=== PATIENT | female | born 1965 | race Caucasian/White ===

== ENCOUNTER 2019-10-17 03:56 | Inpatient (IN) | payer BC ==
--- NOTE | 2019-10-17 04:10 | ED ---
Abdominal Pain/Female - HPI Summary HPI Summary: This pt is a 54 Y/O F presenting to [facility] with a CC of RLQ abdominal pain that started after she ate dinner at 2000 and is currently rated a 6/10 in severity. She states that she has been nauseas and SOB that is currently intermittent. She denies any vomiting or having diarrhea. She states that she has been constipated recently. She states that she has been unable to sleep due to the pain. She denies any fevers, chills, headaches, and back pain. She is currently transferred to [facility] for further investigations following a DDx of a SBO from [place]. She has a PMHx of diabetes and a FHx of HTN and diabetes. - History of Current Complaint Chief Complaint: EDAbdPain Stated Complaint: ABD PAIN PER EMS Time Seen by Provider: 10/17/19 04:25 Hx Obtained From: Patient Onset/Duration: Sudden Onset, Lasting Hours - 8, Still Present Timing: Constant Severity Initially: Moderate Severity Currently: Moderate Pain Intensity: 6 Pain Scale Used: 0-10 Numeric Location: Discrete At: RLQ Radiates: No Aggravating Factor(s): Food Alleviating Factor(s): Nothing Associated Signs and Symptoms: Positive: Negative - chills, headaches, back pain , Nausea, Other: - constipation, SOB. Negative: Fever, Vomiting, Diarrhea Allergies/Adverse Reactions: Allergies Allergy/AdvReac Type Severity Reaction Status Date / Time No Known Allergies Allergy Verified 07/29/18 08:21 Home Medications: Home Medications Cholecalciferol (Vitamin D3) [D 1000] 500 unit PO BID 10/17/19 [History Confirmed 10/17/19] Cyanocobalamin INJ * [Vitamin B12 INJ *] 1,000 mcg IM MONTHLY 10/17/19 [History Confirmed 10/17/19] Lansoprazole [Prevacid] 30 mg PO BID 10/17/19 [History Confirmed 10/17/19] Lidocaine [Ztlido] 1 patch TOPICAL Q12HR 10/17/19 [History Confirmed 10/17/19] Naratriptan HCl [Amerge] 2.5 mg PO DAILY PRN 10/17/19 [History Confirmed ] metFORMIN* [Glucophage 500 MG TAB *] 500 mg PO BID 10/17/19 [History Confirmed 10/17/19] PMH/Surg Hx/FS Hx/Imm Hx Previously Healthy: Yes Endocrine/Hematology History: Reports: Hx Diabetes Cardiovascular History: Denies: Hx Embolism Respiratory History: Denies: Hx Pleural Effusion Sensory History: Denies: Hx Contacts or Glasses Opthamlomology History: Denies: Hx Contacts or Glasses - Surgical History Surgical History: Yes - Immunization History Immunizations Up to Date: Yes Infectious Disease History: Denies: Traveled Outside the [place] in Last 30 Days - Family History Known Family History: Positive: Cardiac Disease, Hypertension, Diabetes - Social History Occupation: Employed Part-time Lives: With Family Alcohol Use: None Hx Substance Use: No Substance Use Type: Reports: None Hx Tobacco Use: No Smoking Status (MU): Never Smoked Tobacco Review of Systems Negative: Fever, Chills Negative: Chest Pain Positive: Shortness Of Breath Positive: Abdominal Pain - RLQ, Nausea. Negative: Vomiting, Diarrhea Genitourinary: Other - POSITIVE: constipation Negative: Headache All Other Systems Reviewed And Are Negative: Yes Physical Exam - Summary Physical Exam Summary: Appearance: Well-appearing, Well-nourished, lying in bed comfortably Skin: Warm, dry, no obvious rash Eyes: sclera anicteric, no conjunctival pallor ENT: mucous membranes moist, pharynx appears normal Neck: Supple, nontender Respiratory: Clear to auscultation, no signs of respiratory distress Cardiovascular: Normal S1, S2. No murmurs. Normal distal pulses in tibial and radial bilaterally. Abdomen: Soft, Upper abdominal tenderness without peritoneal signs, normal active bowel sounds present Musculoskeletal: Normal, Strength/ROM Intact Neurological: A&Ox3, awake and alert, mentation is normal, speech is fluent and appropriate Psychiatric: affect is normal, does not appear anxious or depressed Triage Information Reviewed: Yes Vital Signs On Initial Exam: Initial Vital Signs Temp 97.5 F 10/17/19 04:09 Pulse 70 10/17/19 04:09 Resp 16 10/17/19 04:09 BP 126/76 10/17/19 04:09 Pulse Ox 99 10/17/19 04:09 Vital Signs Reviewed: Yes Procedures - Sedation Patient Received Moderate/Deep Sedation with Procedure: No Abdominal Pain Fem Course/Dx - Course Course Of Treatment: his pt is a 54 Y/O F presenting to [facility] with a CC of RLQ abdominal pain that started after she ate dinner at 2000 and is currently rated a 6/10 in severity. She states that she has been nauseas and SOB that is currently intermittent. She denies any vomiting or having diarrhea. She states that she has been constipated recently. She states that she has been unable to sleep due to the pain. Her PE found that she currently has upper abdominal tenderness without perotineal signs. She will be admitted to [facility] by Dr. Todd, surgery, for futher evaluation and treatment. She was Dx with a SBO. She was given 2 doses of dilaudid, lactated ringers, and Zofran during her ED course. - Diagnoses Provider Diagnoses: SBO (small bowel obstruction) - Provider Notifications Discussed Care Of Patient With: William Todd Time Discussed With Above Provider: 04:30 Instructed by Provider To: Admit As Inpatient Admit/Transition Orders Completed By ED Provider: Yes Discharge ED - Sign-Out/Discharge Documenting (check all that apply): Patient Departure - admitted - Discharge Plan Condition: Stable Disposition: ADMITTED TO [facility] - Billing Disposition and Condition Condition: STABLE Disposition: Admitted to [facility] - Attestation Statements Document Initiated by Ericaibe: Yes Documenting Scribe: Dash Madrid Provider For Whom Hermilo is Documenting (Include Credential): Kenji Mello MD Scribe Attestation: Dash Gonzalez, scrbobbyed for Kenji Mello MD on 10/17/19 at 2123. Scribe Documentation Reviewed: Yes Provider Attestation: The documentation as recorded by the Dash honeycutt accurately reflects the service I personally performed and the decisions made by me, Kenji Mello MD Status of Scribe Document: Viewed
[2019-10-17] MEDS ORDERED: HYDROmorphone INJ* 0.5 MG/0.5 ML SYRINGE IV SLOW PU PRN (04:19)
[2019-10-17] MEDS ORDERED: HYDROmorphone INJ* 0.5 MG/0.5 ML SYRINGE IV ONE (04:21)
[2019-10-17] MEDS: Lactated Ringers 1000 ML Bag* 1,000 ML IV SCH ×2 (08:07→22:32)
[2019-10-17] MEDS: Ondansetron INJ* 2 MG/ML VIAL IV PRN (08:08)
[2019-10-17] MEDS: HYDROmorphone INJ1* 1 MG/ML SYRINGE IV SLOW PU PRN ×2 (10:34→12:37)
[2019-10-17] MEDS: Pantoprazole IV* 40 MG IV SCH (10:36)
--- NOTE | 2019-10-17 11:22 | HP ---
CC: [facility]; JOSÉ Miles; Dr. Se Singh ADMISSION HISTORY AND PHYSICAL: DATE OF ADMISSION: 10/17/19 PRIMARY CARE PHYSICIAN: JOSÉ Miles in [place]. CHIEF COMPLAINT: Abdominal pain with nausea. HISTORY OF PRESENT ILLNESS: Ms. Ly Villegas is a 54-year-old woman with a complicated surgical history that includes a laparoscopic gastric bypass with Dr. Franco in 2005. She presented with abdominal discomfort in 2010 and was felt to be in internal herniation with obstruction prompting exploratory laparoscopy and laparotomy with hernia reduction and repair. She subsequently had a complicated postoperative course which required a second operation with placement of a remnant gastric G-tube and drain placement and total parenteral nutrition. She had recovered from this well and over the past 5 to 6 years, her main complaint has been some chronic abdominal discomfort with nausea. She states she has had trouble maintaining her weight, sees Dr. Singh for chronic vitamin deficiencies. She is a diabetic. She has elevated blood sugars and these have been managed with several different regimens and she is to see Dr. El this Saturday. She states she developed some right upper quadrant abdominal pain which was different for her yesterday. This associated once again with dry heaves. The pain became somewhat progressively worsen. She presented to the emergency room at [facility]. She was noted to be afebrile there with stable vital signs and no evidence of tachycardia. She had a laboratory workup which was essentially unremarkable and I have reviewed. This included a normal white blood cell count. Electrolytes, BUN, and creatinine were unremarkable with a potassium of 3.5 and a BUN and creatinine of 16 and 0.8. Liver transaminases and bilirubin and amylase were also normal. The troponin was normal as well. Lactic acid was also normal. She underwent a CT scan of abdomen and pelvis. I did review these images. She appears to have some air and fluid within the gastric remnant as well as both biliopancreatic and the Jhonny limb from the gastrojejunostomy with concern for intussusception, most likely at the jejunostomy anastomosis. Distal small bowel appears to be collapsed. There was no evidence of free air, free fluid or other acute abnormalities. She has had an open cholecystectomy in the when she had a mildly dilated common bile duct. She was transferred to [facility] for further surgical care and was admitted to the surgical service. Also of note is that she has undergone [address] Ramirez in the past. Most likely 2018, she noted to have a marginal ulcer and has been on proton pump inhibitor since that time. No other abnormalities were found. She has not followed up with the Bariatric Surgical Services in at least 4 to 5 years. PAST MEDICAL HISTORY: 1. Chronic back and abdominal pain. 2. Diabetes. 3. Anxiety. MEDICINES: Include: 1. Amerge 2.5 mg daily. 2. Lidocaine patch. 3. Zofran. 4. Vitamin D. 5. Vitamin B12. 6. Metformin 500 mg b.i.d. 7. Prevacid 30 mg b.i.d. 8. Alprazolam 1 mg p.o. t.i.d. ALLERGIES: She has no known drug allergies. SOCIAL HISTORY: She is and lives in the [facility]. She presently is not working. She does not use tobacco. REVIEW OF SYSTEMS: Otherwise unremarkable and as per above. PHYSICAL EXAMINATION GENERAL: She is a well-developed, very slender female, appears to be in no apparent distress. VITAL SIGNS: Temperature 97.7, pulse 63, blood pressure 121/62, respirations 16. HEENT: Oral mucosa slightly dry. LUNGS: Clear to auscultation with normal respiratory effort. HEART: Regular rate and rhythm without murmurs, rubs, or gallops. ABDOMEN: Her abdomen is soft and nondistended. She has a well healed right subcostal incision. She has a well healed upper midline incision without hernia. She has diminished bowel sounds throughout. I appreciate no hernias. She has some mild tenderness in the mid and right abdomen without rebound, guarding or peritoneal irritation. EXTREMITIES: Show no cyanosis or edema. PSYCHIATRIC: She appears to be awake, alert and conversive and is oriented to person, place, and time. IMPRESSION: Abdominal discomfort in a patient with a complicated bariatric surgery including laparoscopic gastric bypass in 2005 with subsequent reoperation in 2010 for an internal hernia and revision. She has had problems with maintenance of weight and appetite as well as nausea and chronic abdominal pain over the past 5 to 6 years and has had evidence of at least 1 marginal ulceration at the gastrojejunostomy for which she takes proton pump inhibitors presently. She has not followed up with the bariatric service in several years. In addition, she had a CT scan done yesterday at [place] which I have reviewed. This does appear to show a probable intussusception at what appears to be most likely the jejunostomy anastomosis with proximal bowel distention with air and fluid in a dilated gastric remnant as well as the Jhonny limb. PLAN: 1. The patient had been admitted to the surgical service. 2. She will be kept n.p.o. and continued on IV fluids. 3. Proton pump inhibitors will be started. We will discuss with her bariatric surgeon here, Dr. Franco and discuss appropriate management. 4. All of the above were discussed with the patient here at the bedside. [id number] #: [id number] MTDD
[2019-10-17] MEDS ORDERED: Rocuronium* 10 MG/ML VIAL ONE (12:28)
[2019-10-17] MEDS ORDERED: Lidocaine 2% PF * 5 ML VIAL ONE (12:28)
[2019-10-17] MEDS ORDERED: Midazolam* 1 MG/ML 2 ML VIAL (2 MG) ONE ×2 (12:29→12:36)
[2019-10-17] MEDS ORDERED: fentaNYL* 50 MCG/ML 2 ML VIAL (100 MCG VIAL) ONE (12:29)
[2019-10-17] MEDS ORDERED: ROPIVACAINE 5 MG/ML 30 ML BTL (0.5%) ONE (12:35)
[2019-10-17] MEDS ORDERED: Dexmedetomidine* 200 MCG/2 ML 2 ML VIAL ONE (12:35)
[2019-10-17] MEDS ORDERED: ZOSYN 3.375 GM x ONE DOSE over 30 miuntes IVPB ×2 (13:00)
[2019-10-17] MEDS ORDERED: Phenylephrine 40 MCG/ML SYRINGE ONE (13:40)
[2019-10-17] MEDS ORDERED: Phenylephrine 10 MG/ML VIAL* 1 ML VIAL ONE (13:41)
[2019-10-17] MEDS ORDERED: Naloxone* 0.4 MG/ML 1 ML VIAL IV PRN (14:28)
[2019-10-17] MEDS ORDERED: DiMENhydriNATE IV* 50 MG/ML VIAL IV PUSH PRN (14:28)
[2019-10-17] MEDS ORDERED: oxyCODONE TAB* 5 MG TAB PO PRN (14:28)
[2019-10-17] MEDS ORDERED: Ondansetron INJ* 2 MG/ML VIAL ONE (14:29)
[2019-10-17] MEDS ORDERED: KETAMINE HCL* 50 MG/ML 10 ML VIAL ONE (14:29)
[2019-10-17] MEDS ORDERED: Metoclopramide IV* 5 MG/ML 2 ML VIAL ONE (14:29)
[2019-10-17] MEDS ORDERED: Dexamethasone IV* 4 MG/ML 1 ML (4 MG) ONE (14:29)
[2019-10-17] MEDS ORDERED: Ketorolac INJ* 30 MG/ML 1 ML VIAL ONE (14:29)
[2019-10-17] MEDS ORDERED: Acetaminophen IV 1GM/100ML * 100 ML ONE (16:34)
--- NOTE | 2019-10-17 16:58 | OP ---
Operative Report - Blank - Operative Report Date of Operation: 10/17/19 Note: OPERATIVE REPORT Pre-op: Small bowel intussuception at previous jejuno-jejunostomy with small bowel obstruction, abdominal pain Post-Op: Same Procedure:Ex lap with revision of jejuno-jejunostomy Surgeon: MD Peyton Asst: Fortunato Antunez MD Anes: general with local , Dr. Carlos IVF:1.5 l crystalloid EBL:50 cc Specimen: portion of small bowel Drain: #10 JOCELIN drain Wound: 2 To PACU
[2019-10-17] MEDS ORDERED: Naloxone* 0.4 MG/ML 1 ML VIAL IV PUSH PRN (17:00)
[2019-10-17] MEDS ORDERED: HYDROmorphone PCA* 20 MG/20 ML PCA.SYRING PCA SCH (17:00)
[2019-10-17] MEDS: HYDROmorphone INJ1* 1 MG/ML SYRINGE IV PRN ×5 (17:08→17:52)
--- NOTE | 2019-10-17 21:03 | OP ---
CC: JOSÉ Miles [facility]; Dr. Se Singh * DATE OF OPERATION: 10/17/19 - ROOM #337 DATE OF : 63 SURGEON: William Todd MD. CREAM HAULER: Ildefonso Antunez MD. ANESTHESIOLOGIST: Dr. Carlos. ANESTHESIA: General with local. PRE-OP DIAGNOSES: 1. Abdominal pain. 2. Small-bowel obstruction secondary to apparent intussusception at existing jejunojejunostomy. POST-OP DIAGNOSES: 1. Abdominal pain. 2. Small-bowel obstruction secondary to apparent intussusception at existing jejunojejunostomy. OPERATIVE PROCEDURE: Exploratory laparoscopy with revision of existing jejunojejunostomy. ESTIMATED BLOOD LOSS: 50 cc. IV FLUIDS: 1.5 L of crystalloids. SPECIMENS: Portion of proximal small-bowel. COMPLICATIONS: None. DRAINS: #10 JOCELIN drain. WOUND CLASSIFICATION: III. FINDINGS: There was a markedly dilated Jhonny limb ascending up to the gastrojejunostomy starting at the existing jejunojejunostomy. Likewise, the biliary biliopancreatic limb was dilated. Distal small-bowel was collapsed. There appeared no other acute findings were noted. All bowel was viable. INDICATION: Ms. Ly Villegas is a 54-year-old woman who underwent a gastric bypass many years ago and had several re-operations for internal hernias. She presented to the emergency room yesterday with a sudden onset of severe upper abdominal discomfort. A CT scan showed findings worrisome for an intussusception at the existing jejunostomy with proximal dilated small-bowel and a gastric remnant with large air-fluid level in it. After discussion with the patient and her , she has been taken to the operating room for exploratory laparotomy. The risks, benefits, and alternatives were discussed with the patient and outlined in the preoperatively written note. The risks of but not limited to bleeding, infection, intraabdominal abscess formation, anastomotic leak requiring re-operation, sepsis, injury to peritoneal and retroperitoneal structures, the risk of anesthesia, blood clots, discomfort, and prolonged recovery were explained. DESCRIPTION OF PROCEDURE: Written informed consent was obtained. The abdomen was marked with indelible ink and preoperative antibiotics were administered. The patient was taken to the operating room and placed in the supine position. Sequential compression devices and a warming blanket were applied. General anesthesia was administered. Leavitt catheter was inserted. The abdomen was prepped and draped in the usual sterile fashion. Time-out verification was completed. A vertical incision was made through the previous upper midline incision. The peritoneal cavity was entered. There were some flimsy omental adhesions to the anterior abdominal wall. The existing gastric remnant was taken down from the anterior abdominal wall, where a gastrostomy tube had been previously placed and removed. We were then able to identify the transverse colon. There was a marked amount of small-bowel distended up in the upper abdomen, and this was reduced, and adhesions were taken down with sharp dissection, which took approximately an hour and a half. At this point, we were able to identify the Jhonny limb extending up to the previously created gastrojejunostomy, which was markedly dilated and somewhat thick walled. At the gastrojejunostomy, we did not identify a typical appearance of what would be expected intussusception, but distal to this anastomosis, the small-bowel was normally collapsed and we followed this all the way down to the terminal ileum. There were no other abnormalities. Also, likewise, the biliopancreatic limb was dilated extending and this was followed up into the ligament of Treitz. Decision was then made to resect the existing jejunostomy as we felt that this was the source of the problem. Also noted was that the orientation was slightly different for the biliopancreatic limb that was more medial to the Jhonny limb, as was normally fashioned. The existing jejunojejunostomy was then stapled proximally and distally and removed. We appropriately marked the three remaining small-bowel ends including the biliopancreatic, the gastrojejunostomy, and the common distal small-bowel. An anastomosis was then performed in a [id number]-spax fashion between the existing Jhonny limb and the distal common bowel, with the common bowel running distally with the [id number] EndoGIA stapler and the common bowel rent was closed with a TA-90 stapler. The mesentery was closed with a running 3-0 Vicryl suture. An appropriate area on the small-bowel distal to this anastomosis was then identified and another jejunojejunostomy between the biliopancreatic limb and the common bowel limb was fashioned likewise in a [id number] fashion. The mesenteric rent was closed with interrupted 3-0 silk sutures. Manley's defect was also closed with interrupted 3-0 Vicryl suture. All the bowel was viable at the completion. It sat nicely in the left upper quadrant without evidence of twisting or volvulus. The abdomen was irrigated. A #10 JOCELIN drain was placed in the right upper quadrant. All sponge, needle and laparotomy pad counts were then reported as correct. The midline fascia was closed with interrupted #1 Vicryl suture. The skin was approximated with a stapling device. The drain was sutured with 3-0 Prolene suture and sterile dressings were applied. The patient tolerated the procedure well and was taken to the recovery room in stable condition. [id number] #: [id number] MTDD
[2019-10-17 21:26] LABS: Urine Appearance Clear; Urine Color Colorless
[2019-10-17 21:27] LABS: Urine Bacteria Absent (Absent); Urine Red Blood Cell 2+(6-10/hpf) (Absent); Urine White Blood Cell Absent (Absent)
[2019-10-17 21:28] LABS: Urine Bilirubin Negative (Negative); Urine Blood 1+ (Negative); Urine Glucose 1+(50 mg/dL) (Negative); Urine Ketones Negative (Negative); Urine Nitrite Negative (Negative); Urine Protein 1+(30 mg/dL) (Negative); Urine Urobilinogen Negative (Negative)
[2019-10-18 05:41] LABS: ABS Lymphocytes 0.6 10^3/ul (1.0-4.8); ABS Monocytes 1.4 10^3/ul (0-0.8); ABS Neutrophils 14.9 10^3/ul (1.5-7.7); Hematocrit 35 % (35-47); Hemoglobin 11.8 g/dL (12.0-16.0); Lymphocyte % 3.7 %; Mean Corpuscular HGB Conc 34 g/dL (31-36); Mean Corpuscular Hemoglobin 30 pg (27-31); Mean Corpuscular Volume 88 fL (80-97); Mean Platelet Volume 8.4 fL (7.4-10.4); Platelet Count 265 10^3/uL (150-450); Red Blood Count 3.97 10^6 /uL (3.70-4.87); Red Cell Distribution Width 14 % (10-15); White Blood Count 16.9 10^3/uL (3.5-10.8)
[2019-10-18 05:59] LABS: BUN/Creatinine Ratio 21.9 (8-20); Calcium 8.3 mg/dL (8.6-10.3); EGFR African American 116.6 (>60); EGFR Non-African American 96.3 (>60); Potassium 4.2 mmol/L (3.5-5.0)
[2019-10-18] MEDS: Lactated Ringers 1000 ML Bag* 1,000 ML IV SCH ×3 (06:24→21:53)
[2019-10-18] MEDS: Pantoprazole IV* 40 MG IV SCH (10:18)
[2019-10-18] MEDS ORDERED: Lorazepam PYXIS KEY PRN (10:41)
[2019-10-18] MEDS ORDERED: Dextrose 50% VIAL 50 ml IV PUSH PRN (11:20)
--- NOTE | 2019-10-18 11:23 | PN ---
Progress Note - Progress Note Date of Service: 10/18/19 SOAP: Subjective: Main complaint is incisional pain No N/V No SOB or CP Wants pires out Objective: Temp Pulse Resp BP Pulse Ox 98.6 F 106 17 127/68 98 10/18/19 11:07 10/18/19 11:07 10/18/19 11:07 10/18/19 11:07 10/18/19 11:07 Intake & Output 10/16/19 10/17/19 10/18/19 10/19/19 06:59 06:59 06:59 06:59 Intake Total 3260 Output Total 1770 350 Balance 1490 -350 Weight 120 lb 120 lb Intake: IV Fluids 3260 LR 3148 NS 100ML, Zosyn 3.375G 100 Oral 0 Output: JOCELIN #1 420 Urine 400 Pires 950 350 PEX: Comfortable-awake and alert Lungs clear, decreased breath sounds at bases Cor is RRR ABd is soft and non-distended. No bowel sounds. Dressing intact without drainage. JOCELIN with serous fluid in bulb. Ext without edema Laboratory Results - last 24 hr 10/17/19 10/17/19 10/18/19 18:27 21:00 00:08 WBC RBC Hgb Hct MCV MCH MCHC RDW Plt Count MPV Neut % (Auto) Lymph % (Auto) [place] % (Auto) Eos % (Auto) Baso % (Auto) Absolute Neuts (auto) Absolute Lymphs (auto) Absolute Monos (auto) Absolute Eos (auto) Absolute Basos (auto) Absolute Nucleated RBC Nucleated RBC % Sodium Potassium Chloride Carbon Dioxide Anion Gap BUN Creatinine Est GFR ( Amer) Est GFR (Non-Af Amer) BUN/Creatinine Ratio Glucose POC Glucose (mg/dL) 194 H 191 H Calcium Urine Color Colorless Urine Appearance Clear Urine pH 5 Ur Specific [place] 1.030 Urine Protein 1+(30 mg/dl) A Urine Ketones Negative Urine Blood 1+ A Urine Nitrate Negative Urine Bilirubin Negative Urine Urobilinogen Negative Ur Leukocyte Esterase Negative Urine WBC (Auto) Absent Urine RBC (Auto) 2+(6-10/hpf) A Urine Bacteria Absent Urine Glucose 1+(50 mg/dl) A Urine Ascorbic Acid Not Reportable 10/18/19 10/18/19 05:34 05:34 WBC 16.9 H RBC 3.97 Hgb 11.8 L Hct 35 MCV 88 MCH 30 MCHC 34 RDW 14 Plt Count 265 MPV 8.4 Neut % (Auto) 87.9 Lymph % (Auto) 3.7 [place] % (Auto) 8.3 Eos % (Auto) 0.0 Baso % (Auto) 0.1 Absolute Neuts (auto) 14.9 H Absolute Lymphs (auto) 0.6 L Absolute Monos (auto) 1.4 H Absolute Eos (auto) 0.0 Absolute Basos (auto) 0.0 Absolute Nucleated RBC 0.0 Nucleated RBC % 0.0 Sodium 137 Potassium 4.2 Chloride 103 Carbon Dioxide 29 Anion Gap 5 BUN 14 Creatinine 0.64 Est GFR ( Amer) 116.6 Est GFR (Non-Af Amer) 96.3 BUN/Creatinine Ratio 21.9 H Glucose 171 H POC Glucose (mg/dL) Calcium 8.3 L Urine Color Urine Appearance Urine pH Ur Specific [place] Urine Protein Urine Ketones Urine Blood Urine Nitrate Urine Bilirubin Urine Urobilinogen Ur Leukocyte Esterase Urine WBC (Auto) Urine RBC (Auto) Urine Bacteria Urine Glucose Urine Ascorbic Acid Assessment: POD# 1 s/p exlap revision of jejuno-jejunostomy, s/p remote gastric bypass Diabetes Tachycardia-most likely secondary to pain at present; good urine output, BP, H/ H stable and no signs of sepsis (WBC most likely immediate post-op change) Plan: WAGON WINDER-adjust analgesia Add ativan which she takes at home Hospitalist consult for DM management D/C pires Increase activity PPI
[2019-10-18] MEDS: HYDROmorphone PCA* 20 MG/20 ML PCA.SYRING PCA SCH ×2 (12:00→16:04)
[2019-10-18] MEDS ORDERED: Lorazepam PYXIS KEY ONE (12:35)
[2019-10-18] MEDS: Insulin LISPRO* 1 UNITS UNIT SUBCUT SCH ×2 (12:39→18:29)
[2019-10-18] MEDS: LORazepam INJ* 2 MG/ML 1 ML VIAL IV PUSH SCH ×2 (12:40→20:25)
--- NOTE | 2019-10-18 13:12 | CONS ---
CC: Dr. William Todd * CONSULTATION REPORT: DATE OF CONSULT: 10/18/19 CONSULTING PROVIDER: Dr. William Todd. MY ATTENDING WHILE IN THE HOSPITAL: Dr. Tooñ Chacon. REASON FOR CONSULT: Co-management of comorbid medical conditions. HISTORY OF PRESENT ILLNESS: Ms. Villegas is a 54-year-old female with past medical history significant for multiple abdominal surgeries related to complications from a gastric bypass in 2005 as well as chronic abdominal and back pain and diabetes mellitus, presumed to be type 2. The patient presented to the emergency department on 10/17/19 with abdominal pain, dry heaves that were worsening and was found to have intussusception at her gastrojejunostomy site. The patient also had been previously treated for a marginal ulcer at this site based on previous EGD findings. The patient was taken to the operating room for surgical repair with Dr. William Todd on 10/17/19 for a successful uncomplicated surgery. The patient was examined and complains mainly of abdominal pain. The patient has no appetite, but no nausea or vomiting. The patient is not passing any gas. The patient just had her Leavitt removed. The patient denies any chest pain, shortness of breath, fevers, chills. The patient has had no recent illnesses. The patient states that in 2005 before her gastric bypass, she weighed 290 pounds and that she has been losing weight consistently since then, but this has gotten worse due to an injection she was recently put on by her primary care provider. She said that was supposed to aid in weight loss, though the patient's BMI is currently 19. The patient sees Dr. Singh for what she said was iron deficiency. She does not appear to be iron deficient based on her most recent labs, but she states that he thought she should be on insulin and she has a followup appointment with Dr. Babak El of Endocrinology on 10/21/19. The patient is currently only on metformin, which she tolerates well. PAST MEDICAL HISTORY: Chronic back pain; chronic abdominal pain; multiple abdominal surgeries; diabetes mellitus, presumed to be type 2; anxiety; recent diagnosis of marginal ulcer; history of internal hernia, status post repair. MEDICATIONS AT HOME: 1. Alprazolam 1 mg p.o. t.i.d. 2. Zofran 4 mg p.o. q.6 hours as needed. 3. Naratriptan 2.5 mg p.o. daily as needed. 4. Vitamin D3 5000 units p.o. b.i.d. 5. Vitamin B12 injection 1000 mcg IM monthly. 6. Metformin 500 mg p.o. b.i.d. 7. Lansoprazole 30 mg p.o. b.i.d. 8. Lidocaine topical patch 1 application every 12 hours. ALLERGIES: No known drug allergies. FAMILY HISTORY: The patient's father is alive and has Parkinson's disease and macular degeneration. The patient's mother is alive and has some health issues , but the patient is not sure what these are. SOCIAL HISTORY: The patient does not smoke, drink or use illicit drugs. 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 She is and lives in [place]. Her surrogate decision maker would be her , Sanket Villegas. REVIEW OF SYSTEMS: A 10-point review of systems was reviewed and is negative except as above in the HPI. PHYSICAL EXAM: General: The patient is a 54-year-old female, who appears older than stated age, is in the ICU and sitting in the bed, in no acute distress. Vital Signs: At the time of evaluation, temperature 98.6, pulse rate 106, respiratory rate 17, oxygen saturation 98% on room air, blood pressure 127/68. HEENT: Head normocephalic, atraumatic. Sclerae anicteric. No conjunctival injection. Nasal mucosa moist. Oral mucosa moist. No pharyngeal erythema, discharge, or exudate. Neck: Supple, nontender. No lymphadenopathy. No carotid bruits auscultated. No JVD. Cardiac: Tachycardic. No clicks, murmurs, gallops, or rubs. Pulses are 2+ in the bilateral dorsalis pedis, posterior tibialis, and radial areas. No bilateral lower extremity edema. No bilateral calf tenderness. Respiratory: Clear to auscultation bilaterally. No wheezes, rales, or rhonchi. Good air exchange bilaterally: Abdomen: Soft. Tender to palpation throughout. Bowel sounds hypoactive. Genitourinary: No suprapubic or CVA tenderness. Skin: Abdominal incision. No other rash. Psychiatric: Flat affect. Good eye contact. Neuro: Cranial nerves II through XII intact. No focal deficits. Alert and oriented x3. LABORATORY DATA: White blood cell count 16.8, hemoglobin 11.8, platelet count 265. Sodium 137, potassium 4.2, chloride 103, carbon dioxide 29, anion gap 5, BUN 14, creatinine 0.64, glucose 171, calcium 8.3. ASSESSMENT AND PLAN: Impression: Ms. Villegas is a 54-year-old female with past medical history significant for gastric bypass with multiple complications, most recently admitted with intussusception at her gastrojejunostomy site, status post repair on 10/17/19, who is currently doing well postoperatively, but with hyperglycemia. We have been consulted for co-management of comorbid medical conditions. 1. Intussusception, postoperative state. Management per General Surgery. Pain control with TRIM SETTER. Fluids until she is able to tolerate fluids by mouth. Coverage, the patient received 1 dose of Zosyn. It is unlikely she needs further antibiotics. 2. Diabetes mellitus type 2. The patient is being treated as if she has diabetes mellitus type 2; however, given that she does have a BMI of 19, there is a possibility she has converted to more of a type 1 physiology at some point in her history. Endocrinology evaluation is appropriate and this will be hopefully completed next week pending her discharge from the hospital. The patient will be continued on q.6 hours fingerstick and Humalog while in the hospital for her slight hyperglycemia, goal is less than 180. The patient has generally good control with a hemoglobin A1c of 7.2, but this is increased from 5.6 in April of this year. 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 3. Anxiety. The patient continues to take scheduled Ativan to replace the patient's Xanax and avoid withdrawal. 4. Chronic back pain. Pain management with TRIM SETTER as above. 5. Marginal ulcer. Continue the patient's pantoprazole at this time. 6. FEN: The patient will be on ice chips and sips of clear and advance per Surgery. Fluids at 125 mL an hour at this time. 7. Disposition: Per General Surgery. Thank you very much for this consultation. We will continue to follow along with you. TIME SPENT: Approximately 45 minutes was spent on this consultation, 20 of which was spent [id number] with the patient obtaining history and physical and discussing the treatment plan. This plan was discussed with my attending, Dr. Toño Chacon, and he is in agreement. JOSÉ GUZMÁN [id number]/[facility] #: [id number] JOSE ANOTNIO
[2019-10-18] MEDS: Ondansetron INJ* 2 MG/ML VIAL IV PRN ×2 (16:42→20:39)
[2019-10-18] MEDS: Heparin VIAL(*) 5000 UNITS/ML VIAL (FIVE THOUSAND) SUBCUT SCH (20:28)
[2019-10-19] MEDS: Insulin LISPRO* 1 UNITS UNIT SUBCUT SCH ×5 (00:03→23:39)
[2019-10-19] MEDS: Lactated Ringers 1000 ML Bag* 1,000 ML IV SCH ×3 (05:34→12:18)
[2019-10-19 06:42] LABS: BUN/Creatinine Ratio 21.1 (8-20); Calcium 8.9 mg/dL (8.6-10.3); EGFR African American 133.2 (>60); EGFR Non-African American 110.1 (>60); Potassium 3.8 mmol/L (3.5-5.0)
[2019-10-19 06:54] LABS: ABS Basophils 0.1 10^3/ul (0-0.2); ABS Eosinophils 0.3 10^3/ul (0-0.6); ABS Lymphocytes 1.1 10^3/ul (1.0-4.8); ABS Monocytes 1.2 10^3/ul (0-0.8); ABS Neutrophils 14.4 10^3/ul (1.5-7.7); Eosinophil % 1.5 %; Hematocrit 34 % (35-47); Hemoglobin 11.3 g/dL (12.0-16.0); Lymphocyte % 6.4 %; Mean Corpuscular HGB Conc 33 g/dL (31-36); Mean Corpuscular Hemoglobin 30 pg (27-31); Mean Corpuscular Volume 89 fL (80-97); Mean Platelet Volume 9.3 fL (7.4-10.4); Platelet Count 261 10^3/uL (150-450); Red Blood Count 3.81 10^6 /uL (3.70-4.87); Red Cell Distribution Width 14 % (10-15); White Blood Count 17.1 10^3/uL (3.5-10.8)
[2019-10-19] MEDS: HYDROmorphone PCA* 20 MG/20 ML PCA.SYRING PCA SCH (07:56)
[2019-10-19] MEDS: Pantoprazole IV* 40 MG IV SCH (08:54)
[2019-10-19] MEDS: LORazepam INJ* 2 MG/ML 1 ML VIAL IV PUSH SCH ×2 (08:54→20:24)
[2019-10-19] MEDS: Heparin VIAL(*) 5000 UNITS/ML VIAL (FIVE THOUSAND) SUBCUT SCH ×2 (08:54→20:23)
--- NOTE | 2019-10-19 11:13 | PN ---
Progress Note - Progress Note Date of Service: 10/19/19 SOAP: Subjective: Doing well Pain better controlled No N/V and no flatus Objective: Temp Pulse Resp BP Pulse Ox 97.7 F 83 18 130/70 100 10/19/19 07:45 10/19/19 07:45 10/19/19 10:48 10/19/19 07:45 10/19/19 10:00 Intake & Output 10/17/19 10/18/19 10/19/19 10/20/19 06:59 06:59 06:59 06:59 Intake Total 3260 2043 Output Total 1770 2630 Balance 1490 -587 Weight 120 lb 120 lb Intake: IV Fluids 3260 1943 LR 3148 1943 NS 100ML, Zosyn 3.375G 100 Oral 0 100 Output: JOCELIN #1 420 180 Urine 400 2100 Leavitt 950 350 PEX: Comfortable Lungs are clear Cor is RRR Abd is soft and non-distended. Incisions are clean and dry, JOCELIN with serosanguinous fluid in bulb. Few bowel sounds present. Ext without edema Laboratory Results - last 24 hr 10/18/19 10/18/19 10/18/19 12:05 18:07 23:54 WBC RBC Hgb Hct MCV MCH MCHC RDW Plt Count MPV Neut % (Auto) Lymph % (Auto) [place] % (Auto) Eos % (Auto) Baso % (Auto) Absolute Neuts (auto) Absolute Lymphs (auto) Absolute Monos (auto) Absolute Eos (auto) Absolute Basos (auto) Absolute Nucleated RBC Nucleated RBC % Sodium Potassium Chloride Carbon Dioxide Anion Gap BUN Creatinine Est GFR ( Amer) Est GFR (Non-Af Amer) BUN/Creatinine Ratio Glucose POC Glucose (mg/dL) 183 H 78 164 H Calcium 10/19/19 10/19/19 10/19/19 05:40 06:08 06:08 WBC 17.1 H RBC 3.81 Hgb 11.3 L Hct 34 L MCV 89 MCH 30 MCHC 33 RDW 14 Plt Count 261 MPV 9.3 Neut % (Auto) 84.6 Lymph % (Auto) 6.4 [place] % (Auto) 7.1 Eos % (Auto) 1.5 Baso % (Auto) 0.4 Absolute Neuts (auto) 14.4 H Absolute Lymphs (auto) 1.1 Absolute Monos (auto) 1.2 H Absolute Eos (auto) 0.3 Absolute Basos (auto) 0.1 Absolute Nucleated RBC 0.0 Nucleated RBC % 0.0 Sodium 135 Potassium 3.8 Chloride 100 L Carbon Dioxide 29 Anion Gap 6 BUN 12 Creatinine 0.57 Est GFR ( Amer) 133.2 Est GFR (Non-Af Amer) 110.1 BUN/Creatinine Ratio 21.1 H Glucose 104 H POC Glucose (mg/dL) 123 H Calcium 8.9 Assessment: POD# 2 s/p revision of jejuno-jejunostomy for SBO Ileus DM Plan: Appreciate hospitalist consult-DM SERVICE ORDER CLERK Increase activity PPI
--- NOTE | 2019-10-19 18:32 | PN ---
Subjective Date of Service: 10/19/19 Interval History: Patient feeling better, Denies chest pain or shortness of breath. Denies fever or chills. Denies diarrhea. c/o nausea Blood sugars reviewed - stable and well controlled Family History: Unchanged from Admission Social History: Unchanged from Admission Past Medical History: Unchanged from Admission Objective Active Medications: Dextrose (Dextrose 50% Vial 50 Ml*) 25 ml IV PUSH .FOR FS < 60 - SS PRN PRN Reason: FS < 60 Heparin Sodium (Porcine) (Heparin Vial(*)) 5,000 units SUBCUT Q12HR [facility] Last Admin: 10/19/19 08:54 Dose: 5,000 units Hydromorphone HCl (Dilaudid Microbiology Teacher*) 20 mg in 20 mls @ 0 mls/hr [employer] DEVELOPER .change Q24H [facility]; Protocol Last Admin: 10/19/19 07:56 Dose: 1 mls/hr Lactated Ringer's (Lactated Ringers 1000 Ml Bag*) 1,000 mls @ 75 mls/hr IV PER RATE [facility] Last Admin: 10/19/19 12:18 Dose: 75 mls/hr Insulin Human Lispro (Humalog*) 0 units SUBCUT Q6HR [facility]; Protocol Last Admin: 10/19/19 17:22 Dose: Not Given Lorazepam (Ativan Inj*) 0.5 mg IV PUSH BID [facility] Last Admin: 10/19/19 08:54 Dose: 0.5 mg Miscellaneous (Ativan Pyxis Vega) 1 ea N/A .ATIVAN IV VEGA PRN PRN Reason: PYXIS VEGA Naloxone HCl (Narcan*) 0.08 mg IV PUSH .Q2MIN PRN PRN Reason: OVERSEDATION Ondansetron HCl (Zofran Inj*) 4 mg IV Q4H PRN PRN Reason: NAUSEA/VOMITING Last Admin: 10/18/19 20:39 Dose: 4 mg Pantoprazole Sodium (Protonix Iv*) 40 mg IV DAILY [facility] Last Admin: 10/19/19 08:54 Dose: 40 mg Vital Signs - 8 hr 10/19/19 10/19/19 10/19/19 10:48 11:20 12:00 Temperature 97.7 F Pulse Rate 82 Respiratory 18 17 17 Rate Blood Pressure 125/63 (mmHg) O2 Sat by Pulse 96 98 Oximetry 10/19/19 10/19/1919 15:03 15:40 17:10 Temperature 99.3 F Pulse Rate 81 Respiratory 17 16 Rate Blood Pressure 134/87 (mmHg) O2 Sat by Pulse 100 100 100 Oximetry 10/19/19 17:11 Temperature Pulse Rate Respiratory 16 Rate Blood Pressure (mmHg) O2 Sat by Pulse 100 Oximetry Oxygen Devices in Use Now: None Appearance: appears comfortable resting in bed , no acute distress. Eyes: No Scleral Icterus Ears/Nose/Mouth/Throat: Clear Oropharnyx, Mucous Membranes Moist Neck: NL Appearance and Movements; NL JVP, Trachea Midline Respiratory: Symmetrical Chest Expansion and Respiratory Effort, Clear to Auscultation Cardiovascular: NL Sounds; No Murmurs; No JVD, No Edema Abdominal: NL Sounds; No Tenderness; No Distention Extremities: No Edema, No Clubbing, Cyanosis Skin: No Rash or Ulcers Neurological: Alert and Oriented x 3 Nutrition: Taking PO's - Nutrition: Malnutrition Diagnosis/Plan Malnutrition Assessment by Registered Dietitian: Malnutrition Assessment Clinical Characteristics Chronic,Moderate Malnutrition Assessment: - "absolutely nothing to eat for three weeks", Criteria per spouse's report - wt loss equates to 25% decline over the past year - mild subcutaneous fat and muscle loss per visual assessment Malnutrition Assessment: - OR 10/17 for revision of jejuno-jejunostomy Interventions - ice chips only (per MD order) - suggest PPN base A (vs TPN for now, for better glycemic control) if need for parenteral nutrition anticipated for < 1 week - suggest TPN base A, if need for parenteral nutrition anticipated > 1 week Malnutrition Assessment: Goals 1. pt will tolerate post-op diet progression without adverse GI effects 2. adequate parenteral nutrition to stablize body wt, provide hydration, and prevent further loss of lean body mass and adipose tissue 3. glycemic control within inpatient parameters and without s/sx hypo- or hyperglycemia 4. achieve and maintain serum electrolytes levels WNL 5. achieve and maintain regulated bowel pattern without c/o constipation (or diarrhea) Result Diagrams: 10/19/19 06:08 10/19/19 06:08 Assess/Plan/Problems-Billing Assessment: Ms. Villegas is a 54 y.o female that presented to the ER with abd pain found to have SBO secondart to intussusception whounder went surgical revision of her jejunojeostomy - Patient Problems (1) Intussusception of jejunum Current Visit: Yes Status: Acute Code(s): K56.1 - INTUSSUSCEPTION SNOMED Code(s): 61291743 Comment: POD #2 - management per surgery diet per surgery (2) Diabetes Current Visit: Yes Status: Acute Code(s): E11.9 - TYPE 2 DIABETES MELLITUS WITHOUT COMPLICATIONS SNOMED Code(s): 49809339 Comment: - will continue fingersicks Q 6 hours - lispro sliding scale (3) DVT prophylaxis Current Visit: Yes Status: Acute Code(s): Z29.9 - ENCOUNTER FOR PROPHYLACTIC MEASURES, UNSPECIFIED SNOMED Code(s): 914725229 Comment: per surgery - heparin (4) Full code status Current Visit: Yes Status: Acute Code(s): Z78.9 - OTHER SPECIFIED HEALTH STATUS SNOMED Code(s): 186835012 Status and Disposition: disposition per surgery
[2019-10-20] MEDS: Lactated Ringers 1000 ML Bag* 1,000 ML IV SCH (03:51)
[2019-10-20] MEDS: HYDROmorphone PCA* 20 MG/20 ML PCA.SYRING PCA SCH (03:56)
[2019-10-20] MEDS: Insulin LISPRO* 1 UNITS UNIT SUBCUT SCH ×3 (05:33→18:47)
[2019-10-20] MEDS: LORazepam INJ* 2 MG/ML 1 ML VIAL IV PUSH SCH ×2 (08:55→21:52)
[2019-10-20] MEDS: Heparin VIAL(*) 5000 UNITS/ML VIAL (FIVE THOUSAND) SUBCUT SCH ×2 (08:55→21:53)
[2019-10-20] MEDS: Pantoprazole IV* 40 MG IV SCH (08:55)
--- NOTE | 2019-10-20 12:05 | PN ---
Progress Note - Progress Note Date of Service: 10/20/19 SOAP: Subjective: Comfortable in bed, NAD. C/O forgeting to use PROPERTY ADMINISTRATOR due to poor short term memory. + Flatus [] Objective: Vital Signs Temp 99.2 F 10/20/19 11:20 Pulse 76 10/20/19 11:20 Resp 14 10/20/19 11:20 BP 123/68 10/20/19 11:20 Pulse Ox 100 10/20/19 11:20 Intake & Output 10/19/19 10/20/19 10/20/19 18:59 06:59 18:59 Intake Total 738 980 Output Total 870 1370 220 Balance -132 -390 -220 Intake: IV Fluids 738 980 LR 738 980 Oral 0 Output: JOCELIN #1 20 20 20 Urine 850 1350 200 Other: # Bowel Movements 0 Laboratory Tests 10/18/19 10/19/19 05:34 06:08 WBC 16.9 H 17.1 H PEX: GEN: NAD Chest:CTA CVS:RRR ABD:soft, non tender, hypo BS's, incision C/D/I tammy in place JOCELIN with sero sang output EXT:calves soft non tender [] Assessment: POD# 3 s/p revision of jejuno-jejunostomy for SBO with post op ileus resolving now with + Flatus [] Plan: D/C PROPERTY ADMINISTRATOR, start PO Percocet. Begin clears. Encourage deep breathing. IS ambulate. AM Labs []
[2019-10-20] MEDS: oxyCODONE/Acetamin 5/325 MG* TAB PO PRN ×2 (13:51→20:22)
[2019-10-20] MEDS: HYDROmorphone INJ* 0.5 MG/0.5 ML SYRINGE IV SLOW PU PRN ×2 (18:59→23:47)
--- NOTE | 2019-10-20 19:51 | PN ---
Subjective Date of Service: 10/20/19 Interval History: c/o abd pain. states that she increased her walking today. Denies chest pain or shortness of breath. denies fever or chills. denies vomiting. passing flatus Family History: Unchanged from Admission Social History: Unchanged from Admission Past Medical History: Unchanged from Admission Objective Active Medications: Dextrose (Dextrose 50% Vial 50 Ml*) 25 ml IV PUSH .FOR FS < 60 - SS PRN PRN Reason: FS < 60 Heparin Sodium (Porcine) (Heparin Vial(*)) 5,000 units SUBCUT Q12HR [facility] Last Admin: 10/20/19 08:55 Dose: 5,000 units Hydromorphone HCl (Dilaudid Inj*) 0.5 mg IV SLOW PU Q4H PRN PRN Reason: PAIN - SEVERE Last Admin: 10/20/19 18:59 Dose: 0.5 mg Lactated Ringer's (Lactated Ringers 1000 Ml Bag*) 1,000 mls @ 75 mls/hr IV PER RATE [facility] Last Admin: 10/20/19 03:51 Dose: 75 mls/hr Insulin Human Lispro (Humalog*) 0 units SUBCUT Q6HR [facility]; Protocol Last Admin: 10/20/19 18:47 Dose: Not Given Lorazepam (Ativan Inj*) 0.5 mg IV PUSH BID [facility] Last Admin: 10/20/19 08:55 Dose: 0.5 mg Miscellaneous (Ativan Pyxis Vega) 1 ea N/A .ATIVAN IV VEGA PRN PRN Reason: PYXIS VEGA Naloxone HCl (Narcan*) 0.08 mg IV PUSH .Q2MIN PRN PRN Reason: OVERSEDATION Ondansetron HCl (Zofran Inj*) 4 mg IV Q4H PRN PRN Reason: NAUSEA/VOMITING Last Admin: 10/18/19 20:39 Dose: 4 mg Oxycodone/Acetaminophen (Percocet 5/325 Tab*) 1 tab PO Q4H PRN PRN Reason: PAIN - MODERATE Last Admin: 10/20/19 13:51 Dose: 1 tab Pantoprazole Sodium (Protonix Iv*) 40 mg IV DAILY [facility] Last Admin: 10/20/19 08:55 Dose: 40 mg Vital Signs - 8 hr 10/20/19 10/20/19 10/20/19 13:51 15:42 16:00 Temperature Pulse Rate Respiratory 18 18 Rate Blood Pressure (mmHg) O2 Sat by Pulse 100 Oximetry 10/20/19 10/20/19 17:02 18:59 Temperature 97.9 F Pulse Rate 73 Respiratory 16 18 Rate Blood Pressure 120/72 (mmHg) O2 Sat by Pulse 100 Oximetry Oxygen Devices in Use Now: None Appearance: alert oriented x 3 , no acute distress Eyes: No Scleral Icterus Ears/Nose/Mouth/Throat: NL Teeth, Lips, Gums, Mucous Membranes Moist Neck: NL Appearance and Movements; NL JVP, Trachea Midline Respiratory: Symmetrical Chest Expansion and Respiratory Effort, Clear to Auscultation Cardiovascular: NL Sounds; No Murmurs; No JVD, No Edema Abdominal: - - tenderness, bs active x 4, soft, JOCELIN drain with minimal serosangous drainage Extremities: No Clubbing, Cyanosis Skin: No Rash or Ulcers Neurological: Alert and Oriented x 3 Nutrition: Taking PO's - Nutrition: Malnutrition Diagnosis/Plan Malnutrition Assessment by Registered Dietitian: Malnutrition Assessment Clinical Characteristics Chronic,Moderate Malnutrition Assessment: - "absolutely nothing to eat for three weeks", Criteria per spouse's report - wt loss equates to 25% decline over the past year - mild subcutaneous fat and muscle loss per visual assessment Malnutrition Assessment: - OR 10/17 for revision of jejuno-jejunostomy Interventions - ice chips only (per MD order) - suggest PPN base A (vs TPN for now, for better glycemic control) if need for parenteral nutrition anticipated for < 1 week - suggest TPN base A, if need for parenteral nutrition anticipated > 1 week Malnutrition Assessment: Goals 1. pt will tolerate post-op diet progression without adverse GI effects 2. adequate parenteral nutrition to stablize body wt, provide hydration, and prevent further loss of lean body mass and adipose tissue 3. glycemic control within inpatient parameters and without s/sx hypo- or hyperglycemia 4. achieve and maintain serum electrolytes levels WNL 5. achieve and maintain regulated bowel pattern without c/o constipation (or diarrhea) Result Diagrams: 10/19/19 06:08 10/19/19 06:08 Assess/Plan/Problems-Billing Assessment: Ms. Villegas is a 54 y.o female that presented to the ER with abd pain found to have SBO secondart to intussusception whounder went surgical revision of her jejunojeostomy - Patient Problems (1) Intussusception of jejunum Current Visit: Yes Status: Acute Code(s): K56.1 - INTUSSUSCEPTION SNOMED Code(s): 41207331 Comment: POD #3 - management per surgery diet per surgery (2) Diabetes Current Visit: Yes Status: Acute Code(s): E11.9 - TYPE 2 DIABETES MELLITUS WITHOUT COMPLICATIONS SNOMED Code(s): 41367961 Comment: - will continue fingersicks Q 6 hours - lispro sliding scale (3) Anxiety Current Visit: Yes Status: Acute Code(s): F41.9 - ANXIETY DISORDER, UNSPECIFIED SNOMED Code(s): 67398204 Comment: continue medications as ordered (4) DVT prophylaxis Current Visit: Yes Status: Acute Code(s): Z29.9 - ENCOUNTER FOR PROPHYLACTIC MEASURES, UNSPECIFIED SNOMED Code(s): 021810405 Comment: per surgery - heparin (5) Full code status Current Visit: Yes Status: Acute Code(s): Z78.9 - OTHER SPECIFIED HEALTH STATUS SNOMED Code(s): 135590262 Status and Disposition: disposition per surgery
[2019-10-21] MEDS: oxyCODONE/Acetamin 5/325 MG* TAB PO PRN ×5 (00:27→20:01)
[2019-10-21] MEDS: Insulin LISPRO* 1 UNITS UNIT SUBCUT SCH ×4 (00:30→18:03)
[2019-10-21] MEDS: HYDROmorphone INJ* 0.5 MG/0.5 ML SYRINGE IV SLOW PU PRN ×5 (03:29→21:09)
[2019-10-21 06:01] LABS: ABS Eosinophils 0.2 10^3/ul (0-0.6); ABS Monocytes 0.4 10^3/ul (0-0.8); Eosinophil % 3.5 %; Hematocrit 28 % (35-47); Hemoglobin 9.3 g/dL (12.0-16.0); Lymphocyte % 17.9 %; Mean Corpuscular HGB Conc 34 g/dL (31-36); Mean Corpuscular Hemoglobin 30 pg (27-31); Mean Corpuscular Volume 89 fL (80-97); Mean Platelet Volume 7.9 fL (7.4-10.4); Platelet Count 225 10^3/uL (150-450); Red Blood Count 3.11 10^6 /uL (3.70-4.87); Red Cell Distribution Width 13 % (10-15); White Blood Count 5.7 10^3/uL (3.5-10.8)
[2019-10-21 06:38] LABS: BUN/Creatinine Ratio 9.5 (8-20); Calcium 8.1 mg/dL (8.6-10.3); EGFR African American 189.5 (>60); EGFR Non-African American 156.6 (>60)
--- NOTE | 2019-10-21 07:59 | PN ---
Progress Note - Progress Note Date of Service: 10/21/19 SOAP: Subjective: Pt seen and examined. Doing ok. pos abdo pain. some flatus, no BM, feels bloated. Objective: [] Temp Pulse Resp BP Pulse Ox 97.7 F 72 18 132/72 99 10/21/19 07:50 10/21/19 07:50 10/21/19 07:55 10/21/19 07:50 10/21/19 07:50 Intake & Output 10/20/19 10/21/19 10/21/19 22:59 06:59 14:59 Intake Total 1040 480 Output Total 1050 102 Balance -10 378 a and o x3, nad lungs cta abdo: soft/ ND/ incisional tenderness hypoactive BS JOCELIN serous ext wnl labs noted Assessment: POD 4 revision JJ, ANAYELI stable Plan: advance diet d/c ivf d/c JOCELIN K repletion d/c home planning
[2019-10-21] MEDS: Heparin VIAL(*) 5000 UNITS/ML VIAL (FIVE THOUSAND) SUBCUT SCH ×2 (09:37→21:08)
[2019-10-21] MEDS: KCL 20 MEQ/100 ML IVPREMIX* 20 MEQ/100 ML BAG IV SCH ×2 (09:37→12:14)
[2019-10-21] MEDS: Pantoprazole IV* 40 MG IV SCH (09:38)
[2019-10-21] MEDS: LORazepam INJ* 2 MG/ML 1 ML VIAL IV PUSH SCH ×2 (09:38→21:08)
[2019-10-22] MEDS: Insulin LISPRO* 1 UNITS UNIT SUBCUT SCH ×2 (00:24→06:12)
[2019-10-22] MEDS: HYDROmorphone INJ* 0.5 MG/0.5 ML SYRINGE IV SLOW PU PRN ×3 (01:30→11:22)
[2019-10-22] MEDS: oxyCODONE/Acetamin 5/325 MG* TAB PO PRN ×4 (04:12→19:31)
[2019-10-22] MEDS: LORazepam INJ* 2 MG/ML 1 ML VIAL IV PUSH SCH (08:03)
[2019-10-22] MEDS: Heparin VIAL(*) 5000 UNITS/ML VIAL (FIVE THOUSAND) SUBCUT SCH ×2 (09:00→21:23)
[2019-10-22] MEDS: Pantoprazole IV* 40 MG IV SCH (09:03)
[2019-10-22 09:19] LABS: ABS Eosinophils 0.2 10^3/ul (0-0.6); ABS Lymphocytes 0.9 10^3/ul (1.0-4.8); ABS Monocytes 0.5 10^3/ul (0-0.8); ABS Neutrophils 5.2 10^3/ul (1.5-7.7); Eosinophil % 2.9 %; Hematocrit 32 % (35-47); Hemoglobin 10.9 g/dL (12.0-16.0); Lymphocyte % 12.9 %; Mean Corpuscular HGB Conc 34 g/dL (31-36); Mean Corpuscular Hemoglobin 30 pg (27-31); Mean Corpuscular Volume 88 fL (80-97); Mean Platelet Volume 8.1 fL (7.4-10.4); Platelet Count 278 10^3/uL (150-450); Red Blood Count 3.62 10^6 /uL (3.70-4.87); Red Cell Distribution Width 14 % (10-15); White Blood Count 6.8 10^3/uL (3.5-10.8)
--- NOTE | 2019-10-22 11:14 | PN ---
Progress Note - Progress Note Date of Service: 10/22/19 SOAP: Subjective: Having some lower abdominal crampy pain-thinks it's gas and she feels like she needs to have a BM No N/V, tolerating po No SOB Objective: Temp Pulse Resp BP Pulse Ox 98.1 F 82 16 138/72 97 10/22/19 07:55 10/22/19 09:06 10/22/19 09:06 10/22/19 07:55 10/22/19 07:55 Intake & Output 10/20/19 10/21/19 10/22/19 10/23/19 06:59 06:59 06:59 06:59 Intake Total 1718 1760 1553 Output Total 2240 1882 2450 600 Balance -522 -122 -897 -600 Intake: IV Fluids 1718 1203 LR 1718 1203 IVPB 800 LR 800 Oral 0 960 350 Output: JOCELIN #1 40 32 Urine 2200 1850 2450 600 Other: # Bowel Movements 0 0 0 1 Estimated Stool Amount Large PEX: Comfortable-awake and alert Lungs are clear Cor is RRR Abd is soft and non-distended. Bowel sounds are present and hyperactive but not high pitched or tinkling. Incision CDI. Appropriate incisional tenderness without rebound or guarding. Laboratory Results - last 24 hr 10/21/19 10/21/19 10/22/19 12:18 18:00 00:00 WBC RBC Hgb Hct MCV MCH MCHC RDW Plt Count MPV Neut % (Auto) Lymph % (Auto) [place] % (Auto) Eos % (Auto) Baso % (Auto) Absolute Neuts (auto) Absolute Lymphs (auto) Absolute Monos (auto) Absolute Eos (auto) Absolute Basos (auto) Absolute Nucleated RBC Nucleated RBC % POC Glucose (mg/dL) 131 H 109 H 99 10/22/19 08:48 WBC 6.8 RBC 3.62 L Hgb 10.9 L Hct 32 L MCV 88 MCH 30 MCHC 34 RDW 14 Plt Count 278 MPV 8.1 Neut % (Auto) 76.1 Lymph % (Auto) 12.9 [place] % (Auto) 7.5 Eos % (Auto) 2.9 Baso % (Auto) 0.6 Absolute Neuts (auto) 5.2 Absolute Lymphs (auto) 0.9 L Absolute Monos (auto) 0.5 Absolute Eos (auto) 0.2 Absolute Basos (auto) 0.0 Absolute Nucleated RBC 0.0 Nucleated RBC % 0.0 POC Glucose (mg/dL) Assessment: POD# 5 s/p revision of jejuno-jenostomy Ileus resolving Tolerating po JOCELIN drain out Normal WBC DM Plan: Bariatric fulls po BS control-hospitalist consult appreciated-await recommendations for outpatient meds, presently on insulin sliding scale Suppository UT Increase activity She is ready for D/C but says her will be working the next 3-4 days and will not have anyone at home to care for her.
[2019-10-22] MEDS ORDERED: oxyCODONE/Acetamin 5/325 MG* TAB PO PRN ×2 (12:55→16:20)
--- NOTE | 2019-10-22 16:16 | PN ---
Hospitalist Progress Note Date of Service: 10/22/19 Blood glucose has been well controlled and patient has received minimal insulin (total of 2 units) while in the hospital. Will d/c insulin and change back over to metformin monotherapy. Patient can be discharged on home dose of metformin. Thank you for this consultation. Hospital Medicine will sign off, but please contact us if you have any further questions or concerns.
[2019-10-22] MEDS: metFORMIN* 500 MG TAB PO SCH (21:23)
[2019-10-22] MEDS: ALPRAZolam TAB* 0.5 MG PO PRN (21:56)
[2019-10-23] MEDS: LORazepam INJ* 2 MG/ML 1 ML VIAL IV PUSH SCH (00:06)
[2019-10-23] MEDS: oxyCODONE/Acetamin 5/325 MG* TAB PO PRN ×2 (03:00→08:55)
[2019-10-23 07:49] VITALS: BP 128/64
[2019-10-23] MEDS: metFORMIN* 500 MG TAB PO SCH (08:55)
[2019-10-23] MEDS: Heparin VIAL(*) 5000 UNITS/ML VIAL (FIVE THOUSAND) SUBCUT SCH (08:56)
[2019-10-23] MEDS: ALPRAZolam TAB* 0.5 MG PO PRN (09:01)
[2019-10-23] MEDS: Pantoprazole IV* 40 MG IV SCH (09:25)
--- NOTE | 2019-10-23 10:35 | PN ---
Progress Note - Progress Note Date of Service: 10/23/19 SOAP: Subjective: NAD, had BM yesterday, + Flatus today [] Objective: Vital Signs Temp 97.5 F 10/23/19 07:48 Pulse 61 10/23/19 07:48 Resp 18 10/23/19 09:01 BP 128/64 10/23/19 07:48 Pulse Ox 100 10/23/19 07:48 Intake & Output 10/22/19 10/23/19 10/23/19 18:59 06:59 18:59 Intake Total 600 600 Output Total 1700 800 300 Balance -1100 -200 -300 Intake: Oral 600 600 Output: Urine 1700 800 300 Other: Estimated Void Medium # Bowel Movements 1 Estimated Stool Amount Large # Voids 2 PEX: GEN:NAD Chest:CTA CVS:RRR ABD:soft, ND/NT, + BS's Incision C/D/I, tammy in place, EXT:calves soft non tender [] Assessment: POD 6 S/P revision of jejuno-jejunostomy with post op ileus. drain has been removed, + Flatus, + BM yesterday [] Plan: D/C home today. Ful liquid diet x 1 week, then pureed diet for 2 weeks. F/U with Dr Todd 10/27/19 @ 9AM. above D/W Dr Todd. reviewed meds and diet with patient []
--- NOTE | 2019-11-09 13:49 | DS ---
Discharge Summary Surgeon:Peyton SIMMONS Admit Date:10/17/19 Discharge Date:10/23/19 D/C diagnosis:S/P revision of Jejunojejunostomy anastomosis Reason For Admission:Abdominal pain Assessment of Condition at Discharge:Stable Date of D/C PEX: Chest:CTA CVS:RRR ABD:Soft ND/NT incisional tammy in place EXT:non tender Procedures Performed:Exploratory Laparotomy for SBO secondary to intussusception at the existing jejunojejunostomy anastomosis with revision of the anastomosis Hospital Course: Pt known to our service S/P lap gastric bypass 2005 Dr Franco , Ex Lap in 2010 due to internal hernia, complications required a follow up surgery with placement of a remnant gastric G Tube drain placement and TPN. Subsequently pt recovered but over last 5 - 6 years has had ongoing abdominal discomfort and nausea. Trouble with maintaining her weight, and has DM. Pt was transfered to [facility] from the ER at [facility] after presenting with dry heaves and abdominal pain on 10/17/19. CT scan from [place] was reviewed by Dr Todd. The CT showed a probable intussusception most likely at the JJ Anastomosis. she was transferred here and placed on the surgical service. Patient was taken to the operating room on 10/17/19 for an Exploratory Laparotomy for SBO secondary to intussusception at the existing jejunojejunostomy anastomosis with revision of the anastomosis. She tolerated the procedure well and was transferred to the PACU and then the SSCU for post op care. due to her DM hospatalists were consulted to oversee the management of her diabetes. Labs were drawn, lytes were replaced as needed. Patient had a post operative ileus, on POD 3 + flatus, clears started. WELT ROUGHER was d/c'd , PO analgesia started. on POD 4 the JOCELIN drain was removed. POD 5 metformin resumed, + BM. POD 6 patient was transferred home Discharge instructions were given to the patient regarding Diet, liquid diet x 1 week, pureed diet x 2 weeks, Medications, Activity, and post operative Follow up. All Questions were answered. Discharged Home in Stable Condition on 10/23/19
== END 2019-10-23 12:30 | disposition home or self-care (01) | DRG 221 ==
LOC: ED 03:56 → SSU 04:19 → OBSVTOIN 09:00 → SSU 10-21 18:30
PROVIDERS: ADMIT Surgery; ATTEND Surgery
PROC: 0DBA0ZZ Excision of Jejunum, Open Approach (ICD-10-PCS; 2019-10-17)
PROC: 0D1A0ZA Bypass Jejunum to Jejunum, Open Approach (ICD-10-PCS; principal; 2019-10-17 13:00)
DX: K56.1 Intussusception (principal); E11.65 Type 2 diabetes mellitus with hyperglycemia; F41.9 Anxiety disorder, unspecified; G89.29 Other chronic pain; M54.9 Dorsalgia, unspecified; R00.0 Tachycardia, unspecified; G43.909 Migraine, unspecified, not intractable, without status migrainosus; K56.7 Ileus, unspecified; K28.9 Gastrojejunal ulcer, unspecified as acute or chronic, without hemorrhage or perforation; Z87.891 Personal history of nicotine dependence; Z98.84 Bariatric surgery status
CPT/HCPCS: 36415; 80048; 81003; 81015; 85025; 88307; 96374; 99284; A9270-GY; C1776; J1100; J1170; J1644; J1885; J2060; J2250; J2405; J2543; J2765; J2795; J3010; J3480

== ENCOUNTER 2020-08-24 13:39 | Inpatient (IN) ==
[2020-08-24] MEDS ORDERED: NS 0.9% 1000 ml BAG 1,000 ML IV ONE ×2 (14:39→16:28)
[2020-08-24 15:12] LABS: ABS Basophils 0.1 10^3/ul (0-0.2); ABS Lymphocytes 2.6 10^3/ul (1.0-4.8); ABS Monocytes 1.1 10^3/ul (0-0.8); ABS Neutrophils 10.6 10^3/ul (1.5-7.7); Eosinophil % 0.1 %; Hematocrit 45 % (35-47); Hemoglobin 14.3 g/dL (12.0-16.0); Mean Corpuscular HGB Conc 32 g/dL (31-36); Mean Corpuscular Hemoglobin 28 pg (27-31); Mean Corpuscular Volume 87 fL (80-97); Mean Platelet Volume 9.3 fL (7.4-10.4); Platelet Count 356 10^3/uL (150-450); Red Blood Count 5.13 10^6 /uL (3.70-4.87); Red Cell Distribution Width 15 % (10-15); White Blood Count 14.3 10^3/uL (3.5-10.8)
[2020-08-24 15:17] LABS: Albumin 4.6 g/dL (3.2-5.2); Calcium 9.8 mg/dL (8.6-10.3); Potassium 4.1 mmol/L (3.5-5.0); Total Bilirubin 0.7 mg/dL (0.2-1.0)
[2020-08-24 15:23] LABS: Albumin/Globulin Ratio 1.8 (1-3); BUN/Creatinine Ratio 15.2 (8-20); EGFR African American 70.2 (>60); Globulin 2.6 g/dL (2-4); Total Protein 7.2 g/dL (6.4-8.9)
[2020-08-24 15:53] LABS: TSH Ultra Thyroid Stim Horm 1.94 mcIU/mL (0.34-5.60)
[2020-08-24 15:55] LABS: Free T4 1.12 ng/dL (0.61-1.12)
[2020-08-24] MEDS ORDERED: Ondansetron 4 mg VIAL 2 MG/ML 2 ml VIAL IV PRN (18:27)
[2020-08-24 18:38] LABS: ALT 31 U/L (7-52); AST 36 U/L (13-39); Albumin 4.4 g/dL (3.2-5.2); Albumin/Globulin Ratio 1.8 (1-3); Alkaline Phosphatase 109 U/L (34-104); Anion Gap 13 mmol/L (2-11); BUN/Creatinine Ratio 15.3 (8-20); Blood Urea Nitrogen 13 mg/dL (6-24); CO2 Carbon Dioxide 22 mmol/L (22-32); Calcium 9.3 mg/dL (8.6-10.3); Chloride 105 mmol/L (101-111); EGFR African American 83.7 (>60); EGFR Non-African American 69.2 (>60); Globulin 2.5 g/dL (2-4); Glucose 130 mg/dL (70-100); Potassium 3.6 mmol/L (3.5-5.0); Sodium 140 mmol/L (135-145); Total Protein 6.9 g/dL (6.4-8.9)
[2020-08-24 18:47] LABS: Troponin I 0.04 ng/mL (<0.03)
[2020-08-24] MEDS ORDERED: Iron Sucrose 20 MG/ML 5 ML VIAL IV PUSH SCH (19:00)
[2020-08-24] MEDS ORDERED: Iodixanol (CONTRAST) 320 MG/ML 100 ML SDV IV ONE (19:00)
[2020-08-24 19:14] LABS: Folate 6.21 ng/mL (>3.99)
[2020-08-24 19:36] LABS: Urine Appearance Clear; Urine Bilirubin Negative (Negative); Urine Blood Negative (Negative); Urine Color Amber; Urine Glucose Negative (Negative); Urine Ketones Trace (Negative); Urine Nitrite Positive (Negative); Urine Protein Negative (Negative); Urine Specific Gravity 1.004 (1.010-1.030); Urine Urobilinogen Positive (Negative)
[2020-08-24 19:55] LABS: Urine Bacteria 1+ (Absent); Urine Red Blood Cell Absent (Absent); Urine Squamous Epithelial Cell Present (Absent); Urine White Blood Cell Absent (Absent)
[2020-08-24 20:35] LABS: Phosphorus 1.4 mg/dL (2.5-5.0)
[2020-08-24] MEDS: CMCS: Progesterone MICRONIZ 200 (NF) CAP PO SCH (21:52)
[2020-08-24] MEDS: Iron Sucrose 200 MG in NS 0.9% 100 ml IVPB SCH (21:52)
[2020-08-24] MEDS: Enoxaparin 40 MG/0.4 ML SYR SUBCUT SCH (21:53)
[2020-08-25] MEDS: NS 0.9% 1000 ml BAG 1,000 ML IV SCH ×2 (04:00→20:51)
[2020-08-25 07:22] LABS: ABS Lymphocytes 1.4 10^3/ul (1.0-4.8); ABS Monocytes 0.7 10^3/ul (0-0.8); ABS Neutrophils 6.7 10^3/ul (1.5-7.7); Eosinophil % 0.3 %; Hematocrit 43 % (35-47); Hemoglobin 14.4 g/dL (12.0-16.0); Lymphocyte % 15.8 %; Mean Corpuscular HGB Conc 33 g/dL (31-36); Mean Corpuscular Hemoglobin 29 pg (27-31); Mean Corpuscular Volume 87 fL (80-97); Mean Platelet Volume 8.8 fL (7.4-10.4); Platelet Count 211 10^3/uL (150-450); Red Blood Count 4.97 10^6 /uL (3.70-4.87); Red Cell Distribution Width 15 % (10-15)
[2020-08-25 08:02] LABS: Albumin 3.8 g/dL (3.2-5.2); CO2 Carbon Dioxide 19 mmol/L (22-32); Calcium 8.9 mg/dL (8.6-10.3); Magnesium 1.9 mg/dL (1.9-2.7); Sodium 141 mmol/L (135-145)
[2020-08-25 08:08] LABS: ALT 218 U/L (7-52); Albumin/Globulin Ratio 1.8 (1-3); Alkaline Phosphatase 209 U/L (34-104); BUN/Creatinine Ratio 13.5 (8-20); Blood Urea Nitrogen 12 mg/dL (6-24); EGFR African American 79.4 (>60); EGFR Non-African American 65.6 (>60); Globulin 2.1 g/dL (2-4); Glucose 154 mg/dL (70-100); Phosphorus 4.6 mg/dL (2.5-5.0); Total Protein 5.9 g/dL (6.4-8.9)
[2020-08-25 08:13] LABS: Chloride 112 mmol/L (101-111)
[2020-08-25 08:18] LABS: Anion Gap 10 mmol/L (2-11)
[2020-08-25 08:29] LABS: Troponin I 0.06 ng/mL (<0.03)
[2020-08-25] MEDS: Iron Sucrose 200 MG in NS 0.9% 100 ml IVPB SCH (08:58)
[2020-08-25] MEDS ORDERED: Cholecalciferol (VIT D3) 1,000 unit TAB PO SCH (09:00)
[2020-08-25] MEDS: Cholecalciferol (VIT D3) 1,000 unit TAB PO SCH (09:02)
[2020-08-25] MEDS: Multivitamins/Minerals TAB PO SCH (09:02)
[2020-08-25 09:10] LABS: AST Redraw 481 U/L (13-39)
[2020-08-25] MEDS: Lidocaine PATCH 5% PATCH TRANSDERM SCH (09:20)
[2020-08-25] MEDS ORDERED: NS 0.9% 500 ml BAG 500 ML IV ONE (09:23)
[2020-08-25 10:07] LABS: Indirect Bilirubin 1.1 mg/dL (0.3-1.0)
[2020-08-25] MEDS: cefTRIAXone 1 gm/50 mL NS BAG 1 GM/50 ML BAG IVPB SCH (10:31)
[2020-08-25 11:12] LABS: Acetaminophen < 15 mcg/mL
[2020-08-25 11:50] LABS: Troponin I 0.07 ng/mL (<0.03)
[2020-08-25 15:02] LABS: Troponin I 0.05 ng/mL (<0.03)
[2020-08-25] MEDS: Enoxaparin 40 MG/0.4 ML SYR SUBCUT SCH (20:04)
[2020-08-25] MEDS: CMCS: Progesterone MICRONIZ 200 (NF) CAP PO SCH (20:05)
[2020-08-25] MEDS: Lidocaine Patch REMOVE PATCH PATCH OFF SCH (20:06)
[2020-08-25 20:24] LABS: Hepatitis B Surface Antigen Nonreactive (Nonreactive)
[2020-08-25 20:29] LABS: Hepatitis A Ab IgM Negative (Negative); Hepatitis B Core IgM Nonreactive (Nonreactive)
[2020-08-25 20:41] LABS: Hepatitis C Antibody Negative (Negative)
[2020-08-26] MEDS ORDERED: NS 0.9% 500 ml BAG 500 ML IV ONE (03:29)
[2020-08-26 03:57] LABS: ABS Basophils 0.1 10^3/ul (0-0.2); ABS Eosinophils 0.2 10^3/ul (0-0.6); ABS Lymphocytes 1.5 10^3/ul (1.0-4.8); ABS Monocytes 0.4 10^3/ul (0-0.8); ABS Neutrophils 4.8 10^3/ul (1.5-7.7); Eosinophil % 2.3 %; Hematocrit 30 % (35-47); Hemoglobin 10.1 g/dL (12.0-16.0); Lymphocyte % 22.2 %; Mean Corpuscular HGB Conc 33 g/dL (31-36); Mean Corpuscular Hemoglobin 29 pg (27-31); Mean Corpuscular Volume 88 fL (80-97); Mean Platelet Volume 8.5 fL (7.4-10.4); Platelet Count 192 10^3/uL (150-450); Red Blood Count 3.45 10^6 /uL (3.70-4.87); Red Cell Distribution Width 16 % (10-15); White Blood Count 6.9 10^3/uL (3.5-10.8)
[2020-08-26 04:12] LABS: Albumin/Globulin Ratio 1.6 (1-3); BUN/Creatinine Ratio 17.6 (8-20); Calcium 7.7 mg/dL (8.6-10.3); EGFR African American 108.3 (>60); EGFR Non-African American 89.5 (>60); Globulin 1.9 g/dL (2-4); Potassium 3.4 mmol/L (3.5-5.0); Total Bilirubin 0.4 mg/dL (0.2-1.0); Total Protein 4.9 g/dL (6.4-8.9)
[2020-08-26] MEDS: NS 0.9% 1000 ml BAG 1,000 ML IV SCH ×2 (04:21→23:53)
[2020-08-26] MEDS: Multivitamins/Minerals TAB PO SCH (08:14)
[2020-08-26] MEDS: Cholecalciferol (VIT D3) 1,000 unit TAB PO SCH (08:14)
[2020-08-26] MEDS: Lidocaine PATCH 5% PATCH TRANSDERM SCH (08:16)
[2020-08-26] MEDS ORDERED: Potassium Chlor 20 meq TAB.ER PO ONE (08:35)
[2020-08-26] MEDS: Iron Sucrose 200 MG in NS 0.9% 100 ml IVPB SCH (09:09)
[2020-08-26 09:25] LABS: Hematocrit 38 % (35-47); Hemoglobin 12.7 g/dL (12.0-16.0)
[2020-08-26] MEDS: cefTRIAXone 1 gm/50 mL NS BAG 1 GM/50 ML BAG IVPB SCH (09:47)
[2020-08-26] MEDS ORDERED: Morphine 2 MG/ML SYRINGE IV ONE (13:01)
[2020-08-26] MEDS: CMCS: Progesterone MICRONIZ 200 (NF) CAP PO SCH (20:20)
[2020-08-26] MEDS: Enoxaparin 40 MG/0.4 ML SYR SUBCUT SCH (20:21)
[2020-08-26] MEDS: Lidocaine Patch REMOVE PATCH PATCH OFF SCH (21:11)
[2020-08-26] MEDS ORDERED: NS 0.9% 1000 ml BAG 1,000 ML IV ONE (21:25)
[2020-08-27 07:21] LABS: ABS Eosinophils 0.2 10^3/ul (0-0.6); ABS Lymphocytes 2.1 10^3/ul (1.0-4.8); ABS Monocytes 0.3 10^3/ul (0-0.8); ABS Neutrophils 4.1 10^3/ul (1.5-7.7); Eosinophil % 2.9 %; Hematocrit 30 % (35-47); Hemoglobin 10.2 g/dL (12.0-16.0); Lymphocyte % 31.3 %; Mean Corpuscular HGB Conc 34 g/dL (31-36); Mean Corpuscular Hemoglobin 29 pg (27-31); Mean Corpuscular Volume 87 fL (80-97); Mean Platelet Volume 8.7 fL (7.4-10.4); Platelet Count 177 10^3/uL (150-450); Red Blood Count 3.49 10^6 /uL (3.70-4.87); Red Cell Distribution Width 16 % (10-15); White Blood Count 6.8 10^3/uL (3.5-10.8)
[2020-08-27 07:32] LABS: Albumin 3.1 g/dL (3.2-5.2); Albumin/Globulin Ratio 1.7 (1-3); BUN/Creatinine Ratio 16.9 (8-20); Calcium 8.2 mg/dL (8.6-10.3); EGFR African American 114.1 (>60); EGFR Non-African American 94.3 (>60); Globulin 1.8 g/dL (2-4); Potassium 3.9 mmol/L (3.5-5.0); Total Bilirubin 0.4 mg/dL (0.2-1.0); Total Protein 4.9 g/dL (6.4-8.9)
[2020-08-27] MEDS: Lidocaine PATCH 5% PATCH TRANSDERM SCH (09:34)
[2020-08-27] MEDS: Iron Sucrose 200 MG in NS 0.9% 100 ml IVPB SCH (09:34)
[2020-08-27] MEDS: Cholecalciferol (VIT D3) 1,000 unit TAB PO SCH (09:36)
[2020-08-27] MEDS: Multivitamins/Minerals TAB PO SCH (09:36)
[2020-08-27] MEDS ORDERED: Cosyntropin 0.25 MG VIAL IV ONE (10:00)
[2020-08-27 12:06] VITALS: BP 136/69
[2020-08-29 19:22] LABS: Anaplasma phagocytophilum Negative (Negative); B. miyamotoi PCR, B Negative (Negative); Babesia divergens/MO-1 Negative (Negative); Babesia ducani Negative (Negative); Ehrlichia chaffeensis Negative (Negative); Ehrlichia ewingii/canis Negative (Negative); Ehrlichia muris eauclairensis Negative (Negative)
== END 2020-08-27 14:45 | disposition home or self-care (01) | DRG 204 ==
LOC: ED 13:39 → MEDTELE 13:39
PROVIDERS: ADMIT Student in an Organized Health Care Education/Training Program; ATTEND Internal Medicine